=== PATIENT | male | born 1965 | race Caucasian/White ===

== ENCOUNTER 2016-04-30 00:40 | Inpatient (IN) | payer BC ==
[2016-04-30] MEDS ORDERED: NS 1,000 ML IV ONE (00:54)
[2016-04-30] MEDS ORDERED: SODIUM CHLORIDE 0.9% 10 ML FLUSH FLUSH PRN (00:54)
[2016-04-30 01:06] LABS: ALLEN'S TEST PASS; TCO2 23.2 MMOL/L (23-27)
[2016-04-30 01:08] LABS: ABG Draw Site Right Radial
[2016-04-30 01:10] LABS: AUTOMATED BASOPHIL 0.6 % (0-2); AUTOMATED EOSINOPHIL 4.5 % (0-5); AUTOMATED LYMPH 16.4 % (17-44); AUTOMATED MONOCYTE 11.7 % (3-10); AUTOMATED NEUTROPHIL 66.8 % (45-76); MPV 11.6 fL (7.4-10.4)
[2016-04-30] MEDS ORDERED: METHYLPREDNISOLONE 125 MG/2 ML VIAL IV ONE (01:13)
[2016-04-30] MEDS ORDERED: Albuterol/Ipratropium Neb 3 ML NEB NEB ONE (01:13)
[2016-04-30 01:20] LABS: PARTIAL THROMB. TIME 30.3 SEC (22-35); PT-INR 1.5
[2016-04-30 01:23] LABS: BLOOD UREA NITROGEN 7 MG/DL (9-20); CALC CORRECTED 9.4 MG/DL (8.4-10.2); CALCIUM 8.3 MG/DL (8.4-10.2); CALCULATED OSMOLALITY 271 MOs/Kg (270-290); CHLORIDE 113 mEq/L (98-107); GLUCOSE 98 mg/dL (70-99); SODIUM LEVEL 142 mEq/L (137-146); TOTAL PROTEIN 6.8 G/DL (6.3-8.2)
[2016-04-30] MEDS ORDERED: Levofloxacin 750 mg/150 ml D5W 750 MG/150 ML RTU IV ONE (01:25)
--- NOTE | 2016-04-30 01:25 | EDPRACDOC ---
- General Information Chief Complaint: Dyspnea/Resp distress Stated Complaint: BREATHING DIFFICULTY Time Seen by Provider: 04/30/16 00:53 Information Source: Patient Mode Of Arrival: Car Home Medications: Home Medications Propranolol HCl [Inderal] 40 mg PO BID 10/11/14 Albuterol Sulfate [Ventolin] 3 ml NEB QID PRN 07/05/15 Alprazolam [Xanax] 0.5 mg PO BID PRN 07/05/15 Nebulizer [Erapid Nebulizer] 1 each MC .UNKNOWN 07/05/15 Sertraline HCl [Zoloft] 25 mg PO DAILY PRN 07/05/15 Albuterol Sulfate [Ventolin Hfa] 1 - 2 puff INH Q4H PRN #1 each 08/29/15 Acetaminophen with Codeine [TYLENOL WITH CODEINE; [employer] with Codeine] 5 ml PO Q6H PRN #120 ml 02/07/16 Prednisone [Deltasone, Orasone] 20 mg PO DAILY #20 tab 02/07/16 Allergies/Adverse Reactions: Allergies Allergy/AdvReac Type Severity Reaction Status Date / Time doxycycline Allergy Severe Hives* Verified 10/29/15 00:19 Penicillins Allergy Severe Anaphylaxis Verified 10/29/15 00:19 * - History of Present Illness HPI: COUGH, CONGESTION, SHOB; WEARS 4L AT ALL TIMES. YELLOW SPUTUM. Shortness of Breath: Moderate Relevant History: Reports: COPD Cough: Reports: Non-productive Rhinorrhea: Reports: Clear Ear Symptoms: Reports: None SOB Worsens with: Reports: Nothing SOB Improves with: Reports: Nothing Associated Signs and symptoms: Reports: Cough ED Past Medical History - History Reviewed Yes Nurses notes reviewed and agree except as marked - Patient Medical History Cardiac History: Reports: Atrial Fibrillation ("irreg heart beat?"), Hypertension, Hypercholesterolemia Respiratory History: Reports: Asthma, COPD (wears 4L via NC at all times) Comment Only: Emphysema (skin, no treatment) GI/ History: Reports: Gastroesophageal Reflux. Denies: Liver Failure (NON- ALCOHOLIC CIRRHOSIS-SPLENOMEGALLY / PORTAL HYPERTENSION) Psychological History: Reports: Anxiety (not as bad as it used to be). Denies: Depression, Substance Use Disorder Systemic History: Reports: Cancer Surgical History: Reports: Cholecystectomy. Denies: Tonsillectomy/Adnoidectomy - Family Medical History Reports: Hypertension (Dad-grandparents), Cancer (Mom-lung), Stroke (Dad-TIAs), Cardiac Disorders (Dad) - Social Medical History Smoking Status: Never smoker Social History: Denies: Other Substance Use EDM Review of Systems - Review of Systems ROS Negative Except as Marked: Yes All systems reviewed and were negative except as marked - Physical Exam Constitutional: Alert (Awake), No apparent distress Oriented to: Time, Person, Place Last recorded Vital Signs: Last Vital Signs Temp 99.1 F 04/30/16 00:50 Pulse 71 04/30/16 00:54 Resp 20 04/30/16 00:54 BP 136/81 04/30/16 00:54 Pulse Ox 96 04/30/16 00:54 Oxygen Pulse Oxygen Saturation 96 O2 Device Nasal Cannula Oxygen Flow Rate 4 Fraction of Inspired Oxygen ( 93 FIO2) - HEENT Head: Normal ( normocephalic) Eye Exam: Normal (PERRL, EOMI, Sclera white) Oropharynx: Normal (Pharynx:Moist without exudate,Gums-no swelling) ENT EAC: Normal TMJ: Normal Nose: No Symptoms Reported (septum midline) Neck: Normal (FROM, trachea at midline) - Respiratory/Cardiovascular Respiratory: Diminished, Wheezes Cardiovascular: Normal (RRR without murmur, gallop or rub) - GI Auscultation: Normal (NABS) Palpation: Normal (Soft,No rebound or guarding, non distended) Tenderness: Non tender Prater's Sign: Negative - Musculoskeletal Back: Normal (Non-Tender) Extremities: Normal (Normal tone, Pulses 2+ No cyanosis or edema, FROM) - Integumentary Skin: Normal, Warm, Dry Lymphatics: Normal (no adenopathy) - Neurologic Memory Impaired: Normal Motor Function: Normal (Normal tone, Pulses 2+ No cyanosis or edema, FROM) Cranial Nerve: Normal (CN II-X11 intact sensation, strength 5/5) Cerebellar: Normal Mood Description: Normal Perception: Normal ED SOB MDM - Results Result Diagrams: 04/30/16 00:58 04/30/16 00:58 Results: WBC 4.1 xk/uL (3.8-10.8) 04/30/16 00:58 RBC 4.20 xM/uL (4.70-6.10) L 04/30/16 00:58 Hgb 16.1 g/dL (14.0-18.0) 04/30/16 00:58 Hct 46.6 % (42-52) 04/30/16 00:58 MCV 111 fL (80-94) H 04/30/16 00:58 MCH 38.2 pg (27-32) H 04/30/16 00:58 MCHC 34.5 g/dl (33-36) 04/30/16 00:58 RDW 14.0 % (11.5-14.5) 04/30/16 00:58 Plt Count 52 xk/uL (130-400) L 04/30/16 00:58 MPV 11.6 fL (7.4-10.4) H 04/30/16 00:58 PT 15.4 SEC (9.2-11.2) H 04/30/16 00:58 INR 1.5 04/30/16 00:58 APTT 30.3 SEC (22-35) 02 00:58 Puncture Site Right radial 04/30/16 01:00 pH 7.450 pH UNITS (7.35-7.45) 04/30/16 01:00 pCO2 32.0 mmHg (35-45) L 04/30/16 01:00 pO2 47.0 mmHg (80-100) L* 04/30/16 01:00 HCO3 22.2 MMOL/L (22-26) 04/30/16 01:00 Total CO2 23.2 MMOL/L (23-27) 04/30/16 01:00 Base Excess -1.0 (+/- 2) 04/30/16 01:00 FiO2 % 4 lpm/nc 04/30/16 01:00 Specimen Drawn By Sami 04/30/16 01:00 Lab Results 04/30/16 04/30/16 04/30/16 01:00 00:58 00:58 WBC 4.1 RBC 4.20 L Hgb 16.1 Hct 46.6 MCV 111 H MCH 38.2 H MCHC 34.5 RDW 14.0 Plt Count 52 L MPV 11.6 H PT 15.4 H INR 1.5 APTT 30.3 Puncture Site Right radial pH 7.450 pCO2 32.0 L pO2 47.0 L* HCO3 22.2 Total CO2 23.2 Base Excess -1.0 FiO2 % 4 lpm/nc Specimen Drawn By Sami - EKG EKG #1 [place]: Normal Rhythm: NSR Block: None Hypertrophy: None ST: Normal ED Critical Care Note - Critical Care Note Total Time (mins): 35 - Departure Yes I personally saw and evaluated the patient. Disposition: Admit IP To This Hospital Condition: Good Final Diagnosis: COPD with acute lower respiratory infection, HYPOXIA Instructions: COPD (Chronic Obstructive Pulmonary Disease) (ED) Referrals: Sal Arnett MD [Primary Care Provider] - One Week Prescriptions: No Action Propranolol HCl [Inderal] 40 mg PO BID Sertraline HCl [Zoloft] 25 mg PO DAILY PRN PRN Reason: Anxiety Alprazolam [Xanax] 0.5 mg PO BID PRN PRN Reason: PANIC ATTACKS Albuterol Sulfate [Ventolin] 3 ml NEB QID PRN PRN Reason: Shortness Of Breath Nebulizer [Erapid Nebulizer] 1 each MC .UNKNOWN Albuterol Sulfate [Ventolin Hfa] 1 - 2 puff INH Q4H PRN #1 each PRN Reason: SHORTNESS OF BREATH Acetaminophen with Codeine [TYLENOL WITH CODEINE; [employer] with Codeine] 5 ml PO Q6H PRN #120 ml PRN Reason: Cough Prednisone [Deltasone, Orasone] 20 mg PO DAILY #20 tab Decision to Admit Time: 02:00 (MANISHA) Decision to admit date: 04/30/16 Decision to admit: from ED
[2016-04-30] MEDS ORDERED: Levofloxacin 750 mg/150 ml D5W 750 MG/150 ML RTU IV SCH (02:00)
--- NOTE | 2016-04-30 02:06 | DIRPT ---
CLINICAL DATA: 50-year-old male with chest pain EXAM: PORTABLE CHEST 1 VIEW COMPARISON: Radiograph dated 02/07/2016 FINDINGS: The heart size and mediastinal contours are within normal limits. Both lungs are clear. The visualized skeletal structures are unremarkable. IMPRESSION: No active disease. Electronically Signed By: Bennett Fu M.D. On: 04/30/2016 02:03
[2016-04-30] MEDS ORDERED: Docusate Sodium 100 MG CAP PO PRN (02:22)
[2016-04-30] MEDS ORDERED: BENZONATATE 100 MG PERLES PO PRN (02:22)
[2016-04-30] MEDS ORDERED: ALBUTEROL 0.083% 3 ML NEB NEB PRN (02:22)
[2016-04-30] MEDS ORDERED: Aluminum;Magnesium;Simethicone 30 ML UDC PO PRN (02:22)
[2016-04-30] MEDS ORDERED: ACETAMINOPHEN 325 MG/TAB TABLET PO PRN (02:22)
[2016-04-30] MEDS ORDERED: MAGNESIUM HYDROXIDE 30 ML BOTTLE PO PRN (02:22)
[2016-04-30] MEDS ORDERED: ONDANSETRON HCL 4 MG/2 ML VIAL IV PRN (02:22)
[2016-04-30] MEDS ORDERED: PROMETHAZINE 25 MG/ML VIAL IV PRN (02:22)
[2016-04-30] MEDS ORDERED: ACETAMINOPHEN 650 MG SUPP PR PRN (02:22)
--- NOTE | 2016-04-30 02:53 | HISTPHYS ---
- Chief Complaint Worsening shortness of breath/respiratory distress. - History of Present Illness Patient is a home O2 dependent COPD patient who requires at least 4 liters/ minute per nasal cannula 13/10. Patient states that he was in his usual state of health (which does involve some baseline shortness of breath, mild wheezing and a mildly productive cough) until 3-4 days ago when he had worsening of his symptoms including increasing respiratory distress with increased cough, expiratory wheezing and sputum production. Symptoms continued to worsen despite continuing his nebulizer treatments. He did note some subjective fevers yesterday but none today. He has also had some pleuritic chest pain but no yenni hemoptysis. He has had no fevers rigors or chills. Of note: Patient has never smoked cigarettes use any tobacco products. He did work for several years at the [employer] in [facility]. - Medical History Cardiac History: Reports: Atrial Fibrillation ("irreg heart beat?"), Hypertension, Hypercholesterolemia Respiratory History: Reports: Asthma, COPD (wears 4L via NC at all times) Comment Only: Emphysema (skin, no treatment) GI/ History: Reports: Liver Failure (NON-ALCOHOLIC CIRRHOSIS-SPLENOMEGALLY / PORTAL HYPERTENSION), Gastroesophageal Reflux Systemic History: Reports: No Significant History Neurological History: Reports: No Significant History Psychological History: Reports: Anxiety (not as bad as it used to be). Denies: Depression, Substance Use Disorder - Surgical History Reports: Cholecystectomy. Denies: Tonsillectomy/Adnoidectomy - Medictions/Allergies Allergies doxycycline Allergy (Severe, Verified 10/29/15 00:19) Hives* Penicillins Allergy (Severe, Verified 10/29/15 00:19) Anaphylaxis* Current Medication List: Reviewed Home Medications Propranolol HCl [Inderal] 40 mg PO BID 10/11/14 Albuterol Sulfate [Ventolin] 3 ml NEB QID PRN 07/05/15 Alprazolam [Xanax] 0.5 mg PO BID PRN 07/05/15 Nebulizer [Erapid Nebulizer] 1 each MC .UNKNOWN 07/05/15 Sertraline HCl [Zoloft] 25 mg PO DAILY PRN 07/05/15 Albuterol Sulfate [Ventolin Hfa] 1 - 2 puff INH Q4H PRN #1 each 08/29/15 Acetaminophen with Codeine [TYLENOL WITH CODEINE; [employer] with Codeine] 5 ml PO Q6H PRN #120 ml 02/07/16 Prednisone [Deltasone, Orasone] 20 mg PO DAILY #20 tab 02/07/16 - Family History Reports: Hypertension (Dad-grandparents), Cancer (Mom-lung), Stroke (Dad-TIAs), Cardiac Disorders (Dad) - Social History Travel Outside of [place] in the Last 3 Months?: No Lives: Alone Smoking Status: Never smoker Social History: Denies: Alcohol Use, Other Substance Use - Review of Systems Yes All systems reviewed and were negative except as marked Constitutional: negative: Chills, Fever, Loss of Appetite Eyes: negative: Blurred Vision, Double Vision, Pain Ears: negative: Pain Nose: negative: Bleeding, Swelling Throat/Neck: negative: Swelling Respiratory: Shortness of Breath, Wheezing, Sputum. negative: Hemoptysis Cardiovascular: Chest Pain (Pleuritic only). negative: Cyanosis, Orthopnea, Palpitations, PND, Syncope, Skin Mottling Gastrointestinal: No Symptoms Reported (No abdominal pain, nausea, vomiting, diarrhea, constipation, or bloody stool.) Genitourinary: negative: Discharge, Hematuria Integumentary: negative: Bruising, Itching, Rash Allergic/Immunologic: No Symptoms Reported (no rashes or lesions) Hematologic: No Symptoms Reported (No chronic anemia, bleeding, or easy bruising.) Endocrine: No Symptoms Reported (No thyroid issues, polyuria, or polydipsia.) Psychiatric: negative: Hallucinations, Suicidal - Physical Exam Vital Signs: Initial Vitals Temperature 99.1 F 04/30/16 00:50 Pulse Rate 76 04/30/16 00:50 Respiratory Rate 20 04/30/16 00:50 Blood Pressure 150/93 04/30/16 00:50 Pulse Oxygen Saturation 93 04/30/16 00:50 Constitutional: Distress (Respiratory distress noted.) Oriented to: Time, Person, Place - HEENT Head: Normal. negative: Deformity, Laceration Eye: negative: Conjunctival Injection, Scleral Icterus Oropharynx: negative: Drooling, Exudate, Red, Tonsillar Hypertrophy TMJ: Normal Respiratory: Diminished, Rhonchi, Tachypnea, Wheezes, Excursion. negative: Rales - GI Auscultation: Normal Palpation: Normal. negative: Mass Tenderness: Non tender. negative: Guarding, Rebound, Rigidity Prater's Sign: Negative - Musculoskeletal Back: Normal, CVA Tenderness Extremities: negative: Clubbing, Cyanosis, Edema, Pedal Edema - Integumentary Skin: Warm, Dry. negative: Rash, Mottling, Jaundice Lymphatics: Normal - Neurologic Memory Impaired: Normal Motor Function: Normal Cranial Nerve: Normal Cerebellar: Normal Mood Description: Normal Thought: Coherent Perception: Normal - Focused CV Perfusion Exam Vital Signs: Last Vital Signs Temp 98.6 F 04/30/16 01:43 Pulse 74 04/30/16 01:25 Resp 20 04/30/16 01:25 BP 144/85 04/30/16 01:25 Pulse Ox 97 04/30/16 01:25 - Lab Results 04/30/16 00:58 04/30/16 00:58 Laboratory Last Values WBC 4.1 xk/uL (3.8-10.8) 04/30/16 00:58 RBC 4.20 xM/uL (4.70-6.10) L 04/30/16 00:58 Hgb 16.1 g/dL (14.0-18.0) 04/30/16 00:58 Hct 46.6 % (42-52) 04/30/16 00:58 MCV 111 fL (80-94) H 04/30/16 00:58 MCH 38.2 pg (27-32) H 04/30/16 00:58 MCHC 34.5 g/dl (33-36) 04/30/16 00:58 RDW 14.0 % (11.5-14.5) 04/30/16 00:58 Plt Count 52 xk/uL (130-400) L 04/30/16 00:58 MPV 11.6 fL (7.4-10.4) H 04/30/16 00:58 Neut % (Auto) 66.8 % (45-76) 04/30/16 00:58 Lymph % (Auto) 16.4 % (17-44) L 04/30/16 00:58 [place] % (Auto) 11.7 % (3-10) H 04/30/16 00:58 Eos % (Auto) 4.5 % (0-5) 04/30/16 00:58 Baso % (Auto) 0.6 % (0-2) 04/30/16 00:58 Absolute Neuts (auto) 2.71 xk/uL (1.7-8.2) 04/30/16 00:58 Absolute Lymphs (auto) 0.66 xk/uL (0.65-4.75) 04/30/16 00:58 Platelet Estimate Dec (NORMAL) 04/30/16 00:58 RBC Morphology 1+ aniso 1+ macro 04/30/16 00:58 RBC Morphology 1+ aniso 1+ macro 04/30/16 00:58 PT 15.4 SEC (9.2-11.2) H 04/30/16 00:58 INR 1.5 04/30/16 00:58 APTT 30.3 SEC (22-35) 04/30/16 00:58 Puncture Site Right radial 04/30/16 01:00 pH 7.450 pH UNITS (7.35-7.45) 04/30/16 01:00 pCO2 32.0 mmHg (35-45) L 04/30/16 01:00 pO2 47.0 mmHg (80-100) L* 04/30/16 01:00 HCO3 22.2 MMOL/L (22-26) 04/30/16 01:00 Total CO2 23.2 MMOL/L (23-27) 04/30/16 01:00 Base Excess -1.0 (+/- 2) 04/30/16 01:00 FiO2 % 4 lpm/nc 04/30/16 01:00 Specimen Drawn By Joeyalysa 04/30/16 01:00 Sodium 142 mEq/L (137-146) 04/30/16 00:58 Potassium 3.8 mEq/L (3.5-5.1) 04/30/16 00:58 Chloride 113 mEq/L (98-107) H 04/30/16 00:58 Carbon Dioxide 19 mMOL/L (22-33) L 04/30/16 00:58 Anion Gap 14 mEq/L (8-16) 04/30/16 00:58 BUN 7 MG/DL (9-20) L 04/30/16 00:58 Creatinine 0.70 MG/DL (0.66-1.25) 04/30/16 00:58 Estimated GFR (MDRD) > 60 mL/min (>=60) 02/08/17 00:58 Glucose 98 mg/dL (70-99) 04/30/16 00:58 Calculated Osmolality 271 MOs/Kg (270-290) 04/30/16 00:58 Lactic Acid 1.0 mEq/L (0.7-2.1) 04/30/16 01:15 Calcium 8.3 MG/DL (8.4-10.2) L 04/30/16 00:58 Corrected Calcium 9.4 MG/DL (8.4-10.2) 04/30/16 00:58 Total Bilirubin 2.5 MG/DL (0.2-1.3) H 04/30/16 00:58 AST 88 IU/L (17-59) H 04/30/16 00:58 ALT 54 IU/L (21-72) 04/30/16 00:58 Alkaline Phosphatase 108 IU/L (38-126) 04/30/16 00:58 Troponin I 0.02 ng/mL (<.04) 04/30/16 00:58 Vcw-[id number] Pept 102 pg/mL (0-450) 04/30/16 00:58 Total Protein 6.8 G/DL (6.3-8.2) 04/30/16 00:58 Albumin 2.9 G/DL (3.5-5.0) L 04/30/16 00:58 - Diagnostic Findings PORTABLE CHEST 1 VIEW COMPARISON: Radiograph dated 02/07/2016 FINDINGS: The heart size and mediastinal contours are within normal limits. Both lungs are clear. The visualized skeletal structures are unremarkable. IMPRESSION: No active disease. Twelve lead EKG: Appears to be sinus rhythm with some irregularity 60 beats per minute. Left atrial enlargement noted. No change from baseline. - Assessment (1) Acute respiratory failure with hypoxia J96.01 - ACUTE RESPIRATORY FAILURE WITH HYPOXIA Acute Present on Admission: Yes Acute on chronic respiratory distress secondary to longstanding COPD which is now exacerbated. No obvious etiology for exacerbation although may be early URI. Plan: Treat per COPD exacerbation plan outlined below. (2) COPD exacerbation J44.1 - CHRONIC OBSTRUCTIVE PULMONARY DISEASE W (ACUTE) EXACERBATION Acute Present on Admission: Yes Plan: DuoNeb treatments q.6 hr on schedule with albuterol nebulizer treatments q.2 hr p.r.n. wheezing or shortness of breath. Will also start Solu-Medrol IV taper. Will treat with proton pump inhibitor therapy while on corticosteroid therapy. (3) Atrial fibrillation, currently in sinus rhythm I48.91 - UNSPECIFIED ATRIAL FIBRILLATION Chronic Present on Admission: Yes Patient with a history of atrial fibrillation currently in normal sinus rhythm. Plan: Monitor cardiac rhythm per PCU/telemetry protocol. Continue beta- dino therapy as prior to admission. Treat exacerbations of rate/rhythm as clinically warranted. (4) Thrombocytopenia D69.6 - THROMBOCYTOPENIA, UNSPECIFIED Acute Present on Admission: Yes Patient has a history of longstanding thrombocytopenia. Current platelet count is at his to usual baseline. No sign of anemia or acute bleeding. Plan: Continue to monitor platelet count as clinically warranted. (5) Nonalcoholic steatohepatitis K75.81 - NONALCOHOLIC STEATOHEPATITIS (CAMPUZANO) Chronic Present on Admission: Yes Previously diagnosed couple of years ago. The patient was negative for alpha fetoprotein as well as hepatitis a B and C. Plan: Continue current care. Case Care Discussed with: Patient Total Time: 70 minutes. Critical Care: No Code: [id number]
[2016-04-30] MEDS: PANTOPRAZOLE 40 MG TAB PO SCH (04:24)
[2016-04-30] MEDS ORDERED: Vaccine Screening Complete SCH (05:00)
[2016-04-30] MEDS: METHYLPREDNISOLONE 125 MG/2 ML VIAL IV SCH ×3 (07:34→20:55)
[2016-04-30] MEDS: Albuterol/Ipratropium Neb 3 ML NEB NEB SCH ×3 (09:01→19:31)
[2016-04-30] MEDS ORDERED: SERTRALINE HCL 25 MG TAB PO PRN (12:49)
[2016-04-30] MEDS ORDERED: ALPRAZOLAM 0.5 MG TAB PO PRN (12:49)
[2016-04-30] MEDS ORDERED: ENOXAPARIN 40 MG/0.4 ML PFS SQ SCH (18:00)
[2016-04-30] MEDS: PROPRANOLOL 40 MG TAB PO SCH (20:56)
[2016-05-01] MEDS: Albuterol/Ipratropium Neb 3 ML NEB NEB SCH ×4 (01:26→19:50)
[2016-05-01] MEDS: Levofloxacin 750 mg/150 ml D5W 750 MG/150 ML RTU IV SCH (02:50)
[2016-05-01] MEDS: METHYLPREDNISOLONE 125 MG/2 ML VIAL IV SCH ×4 (02:50→20:52)
[2016-05-01 05:07] VITALS: BMI 25.4
[2016-05-01 05:25] LABS: MPV 12.1 fL (7.4-10.4)
[2016-05-01 05:26] LABS: BLOOD UREA NITROGEN 9 MG/DL (9-20); CALCIUM 8.6 MG/DL (8.4-10.2); CALCULATED OSMOLALITY 269 MOs/Kg (270-290); CHLORIDE 111 mEq/L (98-107); GLUCOSE 165 mg/dL (70-99); SODIUM LEVEL 138 mEq/L (137-146)
[2016-05-01] MEDS: PANTOPRAZOLE 40 MG TAB PO SCH (05:54)
[2016-05-01 06:19] LABS: SEG NEUTROPHIL 95 % (45-76)
[2016-05-01 06:28] LABS: TOTAL CELL COUNT 100
[2016-05-01] MEDS ORDERED: PNEUMOCOCCAL 0.5 ML VIAL IM ONE (08:00)
[2016-05-01] MEDS: PROPRANOLOL 40 MG TAB PO SCH ×2 (10:46→20:52)
--- NOTE | 2016-05-01 14:14 | GENMEDPROG ---
Chief Complaint: Some better today. Less wheezing and congestion. Denies chest pain or other complaints currently Notes Reviewed: Yes: Events from last night noted and discussed with Clinical Staff Current Medication List: Reviewed Currently: Reports: Cough, Wheezing, MELISSA, SOB. Denies: Nausea and Vomiting, Abdominal Pain - Physical Examination Vital Signs and I&O: Last Vital Signs Temp 97.6 F 05/01/16 08:25 Pulse 88 05/01/16 11:50 Resp 18 05/01/16 08:25 BP 131/60 05/01/16 08:25 Pulse Ox 93 05/01/16 08:25 Oxygen Pulse Oxygen Saturation 93 O2 Device Nasal Cannula Oxygen Flow Rate 4 Fraction of Inspired Oxygen ( 50 FIO2) Intake & Output 04/28/16 04/29/16 04/30/16 05/01/16 23:59 23:59 23:59 23:59 Intake Total 970 1683 Output Total 1100 800 Balance -130 883 Patient's weight 77.247 kg 78.199 kg General: Alert, Oriented x3, Cooperative, Mild distress. negative: Well appearing (Chronically ill-appearing) HEENT: Normal, PERRLA, EOMI, Anicteric Sclera Neck: Non-tender, Full range of motion, Normal Trachea alignment, Normal inspection. negative: JVD Lymphatics: Normal Respiratory: Diminished, Rhonchi, Tachypnea, Wheezes, Excursion. negative: Rales Cardiovascular: Regular rate and rhythm, No Gallops,Rubs/Murmurs GI: Normal bowel sounds, Soft, Non tender, No hepatospenomegaly Extremities/Musculoskeletal: Normal pulses, Tenderness, Swelling, Edema Skin: Warm,Dry and Intact Neurological: Normal Steady Gait Psych/Mental Status: Appropriate, Normal Affect, Cooperative Lab/DI/Studies Reviewed: Laboratory Results - last 24 hr 05/01/16 05/01/16 04:15 04:15 WBC 9.0 RBC 3.87 L Hgb 15.0 Hct 43.3 MCV 112 H MCH 38.7 H MCHC 34.5 RDW 14.5 Plt Count 39 L MPV 12.1 H Neut % (Auto) Cancelled Lymph % (Auto) Cancelled [place] % (Auto) Cancelled Eos % (Auto) Cancelled Baso % (Auto) Cancelled Absolute Neuts (auto) Cancelled Absolute Lymphs (auto) Cancelled Seg Neuts % (Manual) 95 H Band Neutrophils % 0 Lymphocytes % (Manual) 2 L Monocytes % (Manual) 3 Absolute Neutrophils 8.55 H Absolute Lymphocytes 0.18 L Platelet Estimate Dec RBC Morphology 2+ macro Sodium 138 Potassium 4.7 Chloride 111 H Carbon Dioxide 19 L Anion Gap 13 BUN 9 Creatinine 0.70 Estimated GFR (MDRD) > 60 Glucose 165 H Calculated Osmolality 269 L Calcium 8.6 - Assessment (1) Acute respiratory failure with hypoxia Acute J96.01 - ACUTE RESPIRATORY FAILURE WITH HYPOXIA Comment/Plan: Some better today. Less distress. Wean steroids and increase activity. (2) COPD exacerbation Acute J44.1 - CHRONIC OBSTRUCTIVE PULMONARY DISEASE W (ACUTE) EXACERBATION Comment/Plan: Overall much better today. Less distress and congestion. Wean steroids and increase activity. Likely home in 1-2 days (3) Thrombocytopenia Acute D69.6 - THROMBOCYTOPENIA, UNSPECIFIED Comment/Plan: Currently stable at approximately 39,000. This is close to his usual baseline (4) Atrial fibrillation, currently in sinus rhythm Chronic I48.91 - UNSPECIFIED ATRIAL FIBRILLATION Comment/Plan: Currently stable. Monitor Case Care Discussed with: Patient, Nursing Staff, Resource Management
[2016-05-02] MEDS: Albuterol/Ipratropium Neb 3 ML NEB NEB SCH ×2 (01:28→09:05)
[2016-05-02] MEDS: Levofloxacin 750 mg/150 ml D5W 750 MG/150 ML RTU IV SCH (02:33)
[2016-05-02] MEDS: METHYLPREDNISOLONE 125 MG/2 ML VIAL IV SCH ×2 (02:33→07:57)
[2016-05-02] MEDS: PANTOPRAZOLE 40 MG TAB PO SCH (04:52)
[2016-05-02 07:38] VITALS: TEMP 97.6
--- NOTE | 2016-05-02 08:56 | PCM.DCS92 ---
- Final/Secondary Discharge Diagnosis (1) Acute respiratory failure with hypoxia Acute J96.01 - ACUTE RESPIRATORY FAILURE WITH HYPOXIA Present on Admission: Yes Comment: Markedly better today. Resting comfortably. Ambulated without difficulty. Says he feels great and wishes to go home (2) COPD exacerbation Acute J44.1 - CHRONIC OBSTRUCTIVE PULMONARY DISEASE W (ACUTE) EXACERBATION Present on Admission: Yes Comment: Much better and stable for discharge home (3) Thrombocytopenia Acute D69.6 - THROMBOCYTOPENIA, UNSPECIFIED Present on Admission: Yes Comment: Stable at baseline. (4) Atrial fibrillation, currently in sinus rhythm Chronic I48.91 - UNSPECIFIED ATRIAL FIBRILLATION Present on Admission: Yes Comment: Currently stable. Monitor Discharge Disposition: Home Discharge Condition: Improved Cognitive Discharge Status: Unimpaired Fuctional Discharge Status: Independent Physician Follow up/Referrals: Sal Arnett MD [Primary Care Provider] - One Week Home Medications / New Prescriptions: New Levofloxacin [Levaquin] 750 mg PO DAILY #5 tablet Prednisone [Sterapred 10 mg/6 day pack] 21 tab PO DIR #1 pack Continue Propranolol HCl [Inderal] 40 mg PO BID Sertraline HCl [Zoloft] 25 mg PO DAILY PRN PRN Reason: Anxiety Alprazolam [Xanax] 0.5 mg PO BID PRN PRN Reason: PANIC ATTACKS Albuterol Sulfate [Ventolin] 3 ml NEB QID Albuterol Sulfate [Ventolin Hfa] 1 - 2 puff INH Q4H PRN #1 each PRN Reason: SHORTNESS OF BREATH O2 Device: Nasal Cannula Diet at Discharge: Heart Healthy Activity: As Tolerated Call Office For: Worsening Symptoms - DC Summary Notes Hospital Course Note:: Discharge summary on patient named ALFONSO HENDRICKSON admitted to [facility] on 04/30/16 by Khanh Lopez MD. Date of discharge is []. Mr. Hendrickson is a 50-year-old white male with history of end-stage COPD on 4 L of oxygen at home baseline who presented emergency room with increasing respiratory distress, cough and congestion. His chest x-ray showed no acute infiltrate but he was severely hypoxic with a PO2 of just 47 on his home 4 L. he was wheezing and rhonchorous diffusely with increased respiratory effort and was admitted to the hospital for further evaluation and management. He was started on IV steroids, IV antibiotics, and nebulizer treatments. Over the course of hospitalization he has improved significantly and has been up ambulating in the halls on his home oxygen. On the day of discharge she states that he feels great. He in fact requests discharge home. He says he has felt better over the last 24 hours than he has in weeks to months. At this point he is stable, has reached maximal hospital benefit and will be discharged home. We will continue him on a steroid taper and complete his full course of antibiotics. He is to follow up with his primary physician in 1-2 weeks Total Time: 45 minutes - Physical Exam Vital Signs: Last Vital Signs Temp 97.6 F 05/02/16 07:37 Pulse 55 L 05/02/16 07:37 Resp 18 05/02/16 07:37 BP 119/61 05/02/16 07:37 Pulse Ox 96 05/02/16 07:37 Oxygen Pulse Oxygen Saturation 96 O2 Device Nasal Cannula Oxygen Flow Rate 4 Fraction of Inspired Oxygen ( 50 FIO2) Constitutional: No apparent distress, Alert, Well nourished, Well appearing Oriented to: Time, Person, Place - HEENT Head: Normal. negative: Deformity, Laceration Eye: negative: Conjunctival Injection, Scleral Icterus Oropharynx: negative: Drooling, Exudate, Red, Tonsillar Hypertrophy TMJ: Normal Nose: negative: Bleeding, Swelling - Respiratory/Cardiovascular Respiratory: Diminished. negative: Rales Cardiovascular: Normal - GI Auscultation: Normal Palpation: Normal. negative: Mass Tenderness: Non tender. negative: Guarding, Rebound, Rigidity Prater's Sign: Negative - Musculoskeletal Back: Normal Extremities: Normal. negative: Clubbing, Cyanosis, Edema, Pedal Edema - Integumentary Lymphatics: Normal - Neurologic Memory Impaired: Normal Motor Function: Normal Cranial Nerve: Normal Cerebellar: Normal Mood Description: Normal Thought: Coherent Perception: Normal
[2016-05-02 10:13] VITALS: BP 123/57; PULSE 72
[2016-05-02] MEDS: PROPRANOLOL 40 MG TAB PO SCH (12:44)
== END 2016-05-02 11:45 | disposition home or self-care (01) | DRG 189 ==
LOC: ED 00:40 → PCU 02:22
PROVIDERS: ATTEND Hospitalist
PROC: 4A033R1 Measurement of Arterial Saturation, Peripheral, Percutaneous Approach (ICD-10-PCS; principal; 2016-04-30)
DX: J96.01 Acute respiratory failure with hypoxia (principal); D69.6 Thrombocytopenia, unspecified; K76.6 Portal hypertension; J44.1 Chronic obstructive pulmonary disease with (acute) exacerbation; Z99.81 Dependence on supplemental oxygen; I48.91 Unspecified atrial fibrillation; Z23 Encounter for immunization; I10 Essential (primary) hypertension; E78.00 Pure hypercholesterolemia, unspecified; J45.909 Unspecified asthma, uncomplicated; K75.81 Nonalcoholic steatohepatitis (NASH); K21.9 Gastro-esophageal reflux disease without esophagitis; F41.9 Anxiety disorder, unspecified; Z90.49 Acquired absence of other specified parts of digestive tract; Z88.0 Allergy status to penicillin; Z88.1 Allergy status to other antibiotic agents; Z79.52 Long term (current) use of systemic steroids
CPT/HCPCS: 36415; 36600; 71010; 80048; 80053; 82803; 83605; 83880; 84484; 85007; 85025; 85027; 85610; 85730; 87040; 90471; 90732; 93005; 94640; 96361; 96365; 96366; 96375; 99285; G0237; J1956; J2930; J3490; J7620